=== PATIENT | male | born 1975 | race Caucasian/White ===

== ENCOUNTER 2024-11-07 12:59 | Outpatient (AMB) | payer OTHER, SELFPAY ==
--- NOTE | 2024-11-07 13:11 | MHC.PC.OV ---
Vital Signs 11/07/24 13:15 11/07/24 14:04 11/07/24 14:04 Height 5 ft 9 in Weight 90.718 kg BMI 29.5 BP 134/92 H 160/110 H 168/110 H Blood Pressure Location Lt brachial Position Sitting Respiration 17 Pulse 77 Pulse Source Pulse Oximeter Pulse Oximetry (%) 97 Oxygen Delivery Method Room Air Intake Visit Reasons: Annual PE - see comments Dolphin Researcher Required: No Accompanied by: Self / Same As Patient Allergies No Known Allergies Allergy (Verified 11/07/24 13:12) Medication List - Last Reconciled 11/07/24 by ESVIN Crabtree lisinopril-hydrochlorothiazide 10-12.5 mg 1 tab PO DAILY Tobacco use date assessed: 11/07/24 Dental Screening Dental Screen Date: 11/07/24 Did you have a dental visit in the last 12 months?: Yes Did you have a dental problem in the last 6 months where you did not have access to dental care?: No Was dental information given to patient?: Patient has dentist HPI HPI Comments History of Present Illness Details 49 year old male with history of L kidney laceration, adhd who is a former smoker presenting for annual physical exam. Currently lives with his long-term girlfriend and her son. Reports very occasional alcohol use. Former cigarette smoker, see below. No illicit drug use or marijuana use. 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 Not following healthy diet. He reports he has not been seen in primary care in many years. Former smoker- last cig in 2 years, smoked for 30 years. 1 ppd Hypertension-new diagnosis. Blood pressure in the office today 160/110 and 168/110 on recheck Concerns: ADHD- difficulty even paying attention to the TV, can't finish a project, only has short lived hobbies. Tries to keep a routine. Stays busy. Somewhat effective Health Maintenance: Due for colonoscopy Due for PSA Eye exam-last appointment this morning. No ophthalmologic concerns Dentist- last visit 1 month ago, first visit in over 30 years. Needs dental extraction and partial. ALso had dental infection Sunscreen-does not wear Reviewed past medical, surgical, family, and social history ROS: General: No fevers, malaise, unintentional weight loss HEENT: No blurred vision, diplopia. No sore throat, nasal congestion, rhinorrhea, sinus pain, ear pain. No hearing loss Neck - no adenopathy Cardiovascular: No chest pain, palpitations, or leg edema Respiratory: No shortness of breath, wheezing, cough GI: No dysphagia, odynophagia, globus sensation. No abdominal pain, nausea, vomiting, diarrhea, constipation, melena, hematochezia : No dysuria, hematuria, increased urinary frequency, decreased urinary output. No testicular swelling or pain. No penile discharge MSK: No myalgia, back pain, arthralgias Neuro: No headaches, weakness, paresthesias Psych: no depression/anxiery. No AH/VH. No SI/HI Skin: No rashes or lesions EXAM: Constitutional - Awake and Alert, No apparent distress Eyes - PERRLA, EOMI. Anicteric Ears - external ears normal, canals clear, TMs intact and pearly patel with good cone of light Nose- septum midline, nares clear, no sinus tenderness Mouth/throat- mucosa moist, tongue and uvula midline, no erythema/edema or tonsillar adenopathy. Neck-trachea midline, thyroid symmetric without palpable nodules, no adenopathy Cardiovascular - S1S2, RRR, No edema Respiratory - Normal lung expansion, Normal respiratory effort, No respiratory distress, CTA bilaterally Gastrointestinal - NT / ND; +BS; No rebound or guarding - No CVA tenderness Extremities - no calf tenderness bilaterally, no swelling Musculoskeletal - Normal inspection, normal ROM Skin - Warm/Dry, no concerning lesions Neurological - Alert & oriented x3, CN II-XII in tact, 5/5 strength BUE and BLE, 2+ patellar reflexes, sensation intact Psychological - Appropriate affect [facility] Medical History (Updated 11/07/24 @ 13:57 by ESVIN Crabtree) Hypertension Anxiety ADHD Former cigarette smoker Major laceration of left kidney, sequela Surgical History (Updated 11/07/24 @ 13:23 by ESVIN Crabtree) No pertinent past surgical history Family History (Updated 11/07/24 @ 13:25 by ESVIN Crabtree) Mother Lewy body dementia Bipolar depression Father Colon cancer Lung cancer Prostate cancer CHF (congestive heart failure) Paternal Grandfather Lung cancer Maternal Grandmother Schizophrenia Social History Housing: House Patient Tobacco Use Status: Former Tobacco user Years Smoked: 30 yrs-quit 2 years ago e-Cigarette/Vaping Use: Never Used service: No Current occupational status: employed 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 1. Little interest or pleasure in doing things: not at all 2. Feeling down, depressed, or hopeless: not at all 3. Trouble falling or staying asleep, or sleeping too much: more than half the days 4. Feeling tired or having little energy: several days 5. Poor appetite or overeating: not at all 6. Feeling bad about yourself - or that you are a failure or have let yourself or your family down: not at all 7. Trouble concentrating on things, such as reading the newspaper or watching television: nearly every day 8. Moving or speaking so slowly that other people could have noticed. Or the opposite - being so fidgety or restless that you have been moving around a lot more than usual: not at all 9. Thoughts that you would be better off or of hurting yourself in some way: not at all Total score: 6 Depression Screening Interpretation: Negative Depression Screening Done: Yes 67152 - PHQ-9 Billing: Yes Source: Developed by Drs. Conrad Fonseca, Juliet Remy, Victoriano Padilla and colleagues, with an educational parul from [employer]. Thrive Questionnaire I am a: Patient What is your living situation today?: I have a steady place to live Within the past 12 months, did the food you bought not last and you didn't have the money to get more?: Never true Within the past 12 months, did you worry whether your food would run out before you got money to buy more?: Never true Do you have trouble paying for medicines?: No Do you have trouble getting transportation to medical appointments?: No Do you have trouble paying your heating and electricity bill?: No Do you have trouble taking care of your child, family member or friend?: No Do you have trouble with day-to-day activities such as bathing, preparing meals, shopping, managing finances, etc.?: No Are you currently unemployed and looking for a job?: No Are you interested in more education?: No Please select the resources that you would like help with: None Currently or been in a relationship where the following occur: No concerns reported THRIVE Score: 0 AUDIT C Alcohol Use Questionnaire (AUDIT-C) 1. How often do you have a drink containing alcohol?: Monthly or less 2. How many drinks containing alcohol do you have on a typical day when you are drinking?: 1 or 2 Total Score: 1 DELPHINE-7 AMB Questionnaire DELPHINE-7 Feeling nervous, anxious, or on edge: 2 = More than half the days Not being able to stop or control worryin = Several days Worrying too much about different things: 0 = Not at all Trouble relaxin = Nearly every day Being so restless that it is hard to sit still: 2 = More than half the days Becoming easily annoyed or irritable: 2 = More than half the days Feeling afraid as if something awful might happen: 3 = Nearly every day Total DELPHINE-7 score (0-4 normal; 5-9 mild; 10-14 moderate; 15-21 severe): 13 Source: Developed by Drs. Conrad Fonseca, Juliet Remy, Victoriano Padilla and colleagues, with an educational parul from [employer]. DELPHINE-7 Assessment Billing DELPHINE-7 Assessment Tool: DELPHINE-7 Assessment 46882 Physical exam (Primary Care) Vital Signs: Last Vital Signs Pulse 77 11/07/24 13:15 Resp 17 11/07/24 13:15 BP 168/110 H 11/07/24 14:04 Pulse Ox 97 11/07/24 13:15 Oxygen Delivery Method Room Air 11/07/24 13:15 BMI result Body Mass Index 29.5 Tobacco/Smoking Status: Tobacco use Status Tobacco use date assessed 11/07/24 11/07/24 13:17 Patient Tobacco Use Status Former Tobacco user 11/07/24 13:17 e-Cigarette/Vaping Use Never Used 11/07/24 13:17 PHQ-9: PHQ-9 Score PHQ-9: Total score 6 11/07/24 13:54 Depression Screening Interpretation: Negative Currently or been in a relationship where the following occur: No concerns reported Coding Level of Care Code Est Pt Level 3 (99841) Est Pt Prev Care 40-64y(29686) Diagnoses Routine medical exam Z00.00 ADHD F90.9 Anxiety F41.9 Hypertension I10 Additional Codes DELPHINE-7 Assessment Billing - DELPHINE-7 Assessment Tool: DELPHINE-7 Assessment 90863 ([id number]) PHQ-9 - 74666 - PHQ-9 Billing: Yes ([id number]) Assessment & Plan Assessment & Plan (1) Routine medical exam: Code(s): Z00.00 - Encounter for general adult medical examination without abnormal findings Plan: 49-year-old male presenting for annual physical exam and to establish care. Plan as below (2) ADHD: Code(s): F90.9 - Attention-deficit hyperactivity disorder, unspecified type Category: Medical Plan: With associated anxiety. Recommend making lists, keeping busy, do not overload activities in a day. If no improvement, can consider pharmacologic therapy. Given written information (3) Anxiety: Code(s): F41.9 - Anxiety disorder, unspecified Category: Medical Plan: DELPHINE-7 score 13. See above (4) Hypertension: Code(s): I10 - Essential (primary) hypertension Category: Medical Plan: New onset. Prescribed lisinopril-hydrochlorothiazide 1012.5 mg daily. Counseled on side effects. Follow-up in the office in 1-2 weeks for blood pressure check with labs completed several days prior to visit Plan Routine screening labs as ordered below Continue with screening colonoscopies and PSA Continue following for annual skin exams, dental exams, and use sun protection Annual eye exams Wear seat belt in car Recommend regular exercise and healthy diet Follow up in 2-3 weeks for blood pressure check Orders: Orders Complete Blood Count Auto Diff Today Z00.00 - Encounter for general adult medical examination without abnormal findings Prostate Specific Antigen Today Z00.00 - Encounter for general adult medical examination without abnormal findings Basic Metabolic Panel Today Z00.00 - Encounter for general adult medical examination without abnormal findings Lipid Panel Today Z00.00 - Encounter for general adult medical examination without abnormal findings Liver Panel Today Z00.00 - Encounter for general adult medical examination without abnormal findings Referrals Lung Cancer Screening Referral Z87.891 - Personal history of nicotine dependence Gastroenterology Referral Z12.11 - Encounter for screening for malignant neoplasm of colon Medications: New lisinopril-hydrochlorothiazide 10-12.5 mg 1 tab PO DAILY 90 tabs 1RF Patient Instructions: Take new blood pressure pill every morning Get labs done several days prior to visit at [facility] Follow up in 2 weeks for BP check
[2024-11-07 13:15] VITALS: BP 134/92; PULSE 77; RESP 17; O2SAT 97; BMI 29.5
[2024-11-07 14:04] VITALS: BP 160/110; BP 168/110
== END 2024-11-07 14:05 | disposition home or self-care (01) ==
LOC: HO.HMCHD 13:00
PROVIDERS: Visit Provider Physician Assistant
DX: Z00.00 Encounter for general adult medical examination without abnormal findings (principal); F90.9 Attention-deficit hyperactivity disorder, unspecified type; F41.9 Anxiety disorder, unspecified; I10 Essential (primary) hypertension

== ENCOUNTER → 2024-11-07 12:59 | Outpatient (BNVA) | payer OTHER, SELFPAY | PROVIDERS: Visit Provider Physician Assistant | DX: Z00.00 Encounter for general adult medical examination without abnormal findings (principal); F90.9 Attention-deficit hyperactivity disorder, unspecified type; F41.9 Anxiety disorder, unspecified; I10 Essential (primary) hypertension; Z87.891 Personal history of nicotine dependence; Z13.31 Encounter for screening for depression | CPT/HCPCS: 96127 ==

== ENCOUNTER 2024-11-21 08:15 | Outpatient (REF) | payer OTHER, SELFPAY ==
[2024-11-21 11:25] LABS: MANUAL DIFF FLAG NO
[2024-11-21 11:33] LABS: Hematocrit 43.3 % (42.0-52.0); Hemoglobin 15.5 g/dl (14.0-18.0); Imm Gran Abs Auto 0.02 X10*3/uL (0.00-0.03); Imm Gran Pct Auto 0.3 % (0.0-0.4); Lymphocytes Absolute Auto 1.7 X10*3/uL (1.2-4.9); Mean Corpuscular HGB Conc 35.8 g/dl (31.0-36.0); Mean Corpuscular Hemoglobin 30.9 pg (27.0-33.0); Mean Corpuscular Volume 86.4 fL (80.0-98.0); NRBC Abs Auto 0.000 X10*3/uL (0.0-0.012); NRBC Pct Auto 0.0 /100WBC (0.0-0.2); Platelet Count 278 X10*3/uL (160-400); Red Blood Count 5.01 X10*6/uL (4.60-5.80); White Blood Count 5.9 X10*3/uL (4.8-10.8)
[2024-11-21 12:01] LABS: Alanine Aminotransferase 44 U/L (0-40); Albumin Level 4.9 g/dL (3.5-5.0); Alkaline Phosphatase 78 U/L (39-117); Anion Gap 10 (12-20); Aspartate Amino Transferase 43 U/L (5-37); Blood Urea Nitrogen 15 mg/dL (9-16); Calcium 9.9 mg/dL (8.4-10.2); Carbon Dioxide 27 mmol/L (22-29); Chloride 105 mmol/L (96-108); Cholesterol 197 mg/dL (<200); Estimated Glomerular Filt Rate > 60; HDL Cholesterol 31 mg/dL (>40); Potassium 3.8 mmol/L (3.3-5.1); Sodium 138 mmol/L (135-145); Total Protein 7.2 g/dL (6.5-8.0); Triglycerides 142 mg/dL (<150)
[2024-11-21 12:10] LABS: Prostate Specific Antigen 0.65 ng/mL (<0.05-4.0)
== END 2024-11-21 08:16 | disposition home or self-care (01) ==
LOC: HO.WFDLDS 08:15
PROVIDERS: Visit Provider Physician Assistant
DX: Z00.00 Encounter for general adult medical examination without abnormal findings (principal); Z12.5 Encounter for screening for malignant neoplasm of prostate; I10 Essential (primary) hypertension; E78.5 Hyperlipidemia, unspecified; E66.9 Obesity, unspecified; Z68.30 Body mass index [BMI] 30.0-30.9, adult
CPT/HCPCS: 36415; 80048; 80061; 80076; 84153; 85025

== ENCOUNTER 2024-11-21 12:54 | Outpatient (AMB) | payer OTHER, SELFPAY ==
--- NOTE | 2024-11-21 13:03 | A.OFFPC_ITS ---
Vital Signs 11/21/24 13:07 Height 5 ft 9 in Weight 92.079 kg BMI 30.0 BP 118/88 Pulse 80 Temp 97.8 F Temp Source Temporal Artery Scan Pulse Oximetry (%) 96 Oxygen Delivery Method Room Air Intake Visit Reasons: 2 week f/u Neurosurgery Research Director Required: No Accompanied by: Self / Same As Patient Allergies No Known Allergies Allergy (Verified 11/21/24 13:03) Medication List - Last Reconciled 11/21/24 by ESVIN Crabtree arm brace (Wrist Brace) As directed. No spica. Ice and ibuprofen tried and have been ineffective lisinopril-hydrochlorothiazide 10-12.5 mg 1 tab PO DAILY Tobacco use date assessed: 11/07/24 Dental Screening Dental Screen Date: 11/07/24 HPI HPI Comments History of Present Illness Details 49 year old male with history of L kidne y laceration, adhd, hypertension, hyperlipidemia, obesity who is a former smoker presenting for annual physical exam. Currently lives with his long term girlfriend and her son. Reports very occasional alcohol use. Former cigarette smoker, see below. No illicit drug use or marijuana use. 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 Not following healthy diet. He reports he has not been seen in primary care in many years. Hypertension-diagnosed last visit and started on lisinopril-hydrochlorothiazide 10-12.5 mg daily. Tolerating well overall though did have an episode of lightheadedness. Has been drinking plenty of water. Blood pressure 118/80 in the office today Hyperlipidemia-LDL 138. Not on statin Obesity-BMI 30 Concerns: ADHD- difficulty even paying attention to the TV, can't finish a project, only has short lived hobbies. Tries to keep a routine. Stays busy. Somewhat effective Health Maintenance: Refer for colonoscopy PSA normal ROS: See HPI EXAM: Constitutional - Awake and Alert, No apparent distress Eyes - PERRL Cardiovascular - S1S2, RRR, No edema Respiratory - Normal lung expansion, Normal respiratory effort, No respiratory distress, CTA bilaterally Extremities - no calf tenderness bilaterally, no swelling Skin - Warm/Dry Neurological - Alert & oriented x3 Psychological - Appropriate affect [facility] Medical History (Updated 11/21/24 @ 13:23 by Jacki Mcmanus, PA) Obesity HLD (hyperlipidemia) Hypertension Anxiety ADHD Former cigarette smoker Major laceration of left kidney, sequela Surgical History (Updated 11/07/24 @ 13:23 by ESVIN Crabtree) No pertinent past surgical history Family History (Updated 11/07/24 @ 13:25 by ESVIN Crabtree) Mother Lewy body dementia Bipolar depression Father Colon cancer Lung cancer Prostate cancer CHF (congestive heart failure) Paternal Grandfather Lung cancer Maternal Grandmother Schizophrenia Social History Housing: House Patient Tobacco Use Status: Former Tobacco user Years Smoked: 30 yrs-quit 2 years ago e-Cigarette/Vaping Use: Never Used service: No Current occupational status: employed 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 Physical exam (Primary Care) Vital Signs: Last Vital Signs Temp 97.8 F 11/21/24 13:07 Pulse 80 11/21/24 13:07 BP 118/88 11/21/24 13:07 Pulse Ox 96 11/21/24 13:07 Oxygen Delivery Method Room Air 11/21/24 13:07 BMI result Body Mass Index 30.0 Tobacco/Smoking Status: Tobacco use Status Tobacco use date assessed 11/07/24 11/21/24 13:04 Patient Tobacco Use Status Former Tobacco user 11/21/24 13:04 e-Cigarette/Vaping Use Never Used 11/21/24 13:04 Coding Level of Care Code Est Pt Level 4 (48779) Complex EM visit Add On G2211 Diagnoses Hypertension I10 HLD (hyperlipidemia) E78.5 Obesity E66.9 Assessment & Plan Assessment & Plan (1) Hypertension: Code(s): I10 - Essential (primary) hypertension Category: Medical Plan: Controlled. Continue lisinopril-hydrochlorothiazide 10-12.5 mg daily. Discussed the importance of adequate fluid intake. Reviewed last renal function electrolyte levels which are normal (2) HLD (hyperlipidemia): Code(s): E78.5 - Hyperlipidemia, unspecified Category: Medical Plan: LDL elevated. Discussed diet recommendations. Will recheck lipid panel and liver panel at following visit (3) Obesity: Code(s): E66.9 - Obesity, unspecified Category: Medical Plan: Recommend healthy diet lower in calories with emphasis on protein, fruits, vegetables and limiting refined sugars, simple carbohydrates, saturated fats and highly processed foods. Recommend regular exercise Plan Follow-up in the office in 6 months with labs completed prior to visit Orders: Orders Basic Metabolic Panel 6 Months E78.5 - Hyperlipidemia, unspecified, I10 - Essential (primary) hypertension Lipid Panel 6 Months E78.5 - Hyperlipidemia, unspecified, I10 - Essential (primary) hypertension Liver Panel 6 Months E78.5 - Hyperlipidemia, unspecified, I10 - Essential (primary) hypertension
[2024-11-21 13:07] VITALS: BP 118/88; PULSE 80; TEMP 36.6; O2SAT 96
== END 2024-11-21 17:01 | disposition home or self-care (01) ==
LOC: HO.HMCHD 12:54
PROVIDERS: Visit Provider Physician Assistant
DX: I10 Essential (primary) hypertension (principal); E78.5 Hyperlipidemia, unspecified; E66.9 Obesity, unspecified